=== PATIENT | female | born 1940 | race Asian ===

== ENCOUNTER → 2018-10-03 | Outpatient (CLI) | payer MEDICARE ==
[~2018-10-03] MED LIST: IBAN150T PO; LEVO25TA4 PO; PRAV40TA2 PO
== END | disposition home or self-care (01) ==
LOC: CFH 13:04 → EDSTATUS 13:15
PROVIDERS: ATTEND Family Medicine
DX: Z12.31 Encounter for screening mammogram for malignant neoplasm of breast (principal)
CPT/HCPCS: 77067

== ENCOUNTER 2019-10-20 12:38 | Outpatient (CLI) | payer MEDICARE ==
[~2019-10-20 12:38] MED LIST changes: -IBAN150T PO; +IBAN150T15 PO
== END 2019-10-20 23:59 | disposition home or self-care (01) ==
LOC: CFH 12:38
PROVIDERS: ATTEND Family Medicine
DX: M81.0 Age-related osteoporosis without current pathological fracture (principal); M85.88 Other specified disorders of bone density and structure, other site
CPT/HCPCS: 77080